=== PATIENT | male | born 1970 | race Caucasian/White ===

== ENCOUNTER 2021-02-08 09:43 | Emergency (ER) | payer BC ==
--- NOTE | 2021-02-08 11:01 | EDM.PDOC ---
ED HPI GENERAL MEDICAL PROBLEM - General Chief Complaint: Chest Pain Stated Complaint: CHEST DISCOMFORT Time Seen by Provider: 02/08/21 09:52 Source of Information: Reports: Patient History Limitations: Reports: No Limitations - History of Present Illness INITIAL COMMENTS - FREE TEXT/NARRATIVE: 50 yo M with hx "ablation" for arrhythmia (pt not certain of exact arrhthmia) around 6 yrs ago (successful) and also GERD presents with episode of chest pain this morning. States he had some chest discomfort during the night that he thought consistent with GERD though unusual for him to have symptoms during the night. Around 5:30 this morning he had a fairly severe episode of epigastric and substernal chest tightness that radiated into his neck. It happened suddenly, lasted around 10 minutes. No associated SOB but he did have some coughing. Much more severe than usual episodes of GERD. No vomiting. He feels normal now. He doesn't get exertional chest pain, is usually very active but has been more sedentary than usual for the past several months. No lower extremity pain/swelling. No fever/recent illness. Had cardiac cath around 4 years ago which was reportedly normal. Is taking omeprazole daily, did take it today and also a tums. Chest Pain Score (Numeric/FACES): 3 - Related Data Allergies Allergy/AdvReac Type Severity Reaction Status Date / Time acetaminophen Allergy Chest Pain Verified 02/08/21 09:52 Penicillins Allergy Itching Verified 02/08/21 09:52 Home Meds: Home Meds Ascorbic Acid [Vitamin C] 1,000 mg PO DAILY 02/08/21 [History] Esomeprazole [NexIUM] 20 mg PO DAILY 02/08/21 [History] Ferrous Sulfate [Iron] 325 mg PO DAILY 02/08/21 [History] Multivitamin [Multi-Vitamin Daily] 1 each PO DAILY 02/08/21 [History] Potassium Gluconate [Potassium] 99 mg PO DAILY 02/08/21 [History] Zinc 1 tab PO DAILY 02/08/21 [History] Past Medical History - Past Health History Medical/Surgical History: Denies Medical/Surgical History HEENT History: Reports: Impaired Vision Cardiovascular History: Reports: Arrhythmia, High Cholesterol Respiratory History: Reports: None Gastrointestinal History: Reports: GERD Genitourinary History: Reports: Renal Calculus Musculoskeletal History: Reports: None Neurological History: Reports: None Psychiatric History: Reports: None Endocrine/Metabolic History: Reports: None Hematologic History: Reports: None Immunologic History: Reports: None Oncologic (Cancer) History: Reports: None Dermatologic History: Reports: None - Infectious Disease History Infectious Disease History: Reports: Chicken Pox - Past Surgical History HEENT Surgical History: Reports: Oral Surgery Cardiovascular Surgical History: Reports: Cardiac Ablation GI Surgical History: Reports: None Social & Family History - Family History Family Medical History: No Pertinent Family History Cardiac: Reports: Heart Murmur - Tobacco Use Tobacco Use Status *Q: Current Every Day Tobacco User Years of Tobacco use: 30 Packs/Tins Daily: 1 - Caffeine Use Caffeine Use: Reports: Coffee - Recreational Drug Use Recreational Drug Use: No ED ROS GENERAL - Review of Systems Review Of Systems: See Below Constitutional: Denies: Fever HEENT: Reports: No Symptoms Respiratory: Denies: Shortness of Breath Cardiovascular: Reports: Chest Pain Endocrine: Reports: Fatigue GI/Abdominal: Denies: Vomiting : Reports: No Symptoms Musculoskeletal: Reports: Neck Pain Skin: Reports: No Symptoms Neurological: Reports: No Symptoms Psychiatric: Reports: No Symptoms Hematologic/Lymphatic: Reports: No Symptoms Immunologic: Reports: No Symptoms ED EXAM, GENERAL - Physical Exam Exam: See Below Exam Limited By: No Limitations General Appearance: Alert, WD/WN, No Apparent Distress Eye Exam: Bilateral Eye: Normal Inspection Ears: Normal External Exam Nose: Normal Inspection Throat/Mouth: Normal Inspection, Normal Voice, No Airway Compromise Head: Atraumatic, Normocephalic Neck: Normal Inspection, Supple, Non-Tender, Full Range of Motion Respiratory/Chest: No Respiratory Distress, Lungs Clear, Normal Breath Sounds, No Accessory Muscle Use Cardiovascular: Normal Peripheral Pulses, Regular Rate, Rhythm, No Edema, No Murmur GI/Abdominal: Soft, Non-Tender, No Distention Back Exam: Normal Inspection Extremities: Normal Inspection, Normal Range of Motion, No Pedal Edema Neurological: Alert, Oriented, Normal Cognition, No Motor/Sensory Deficits Psychiatric: Normal Affect, Normal Mood Skin Exam: Warm, Dry, Intact, Normal Color, No Rash Course - Vital Signs Last Recorded V/S: Last Vital Signs Temp 36.2 C 02/08/21 09:57 Pulse 69 02/08/21 09:57 Resp 14 02/08/21 09:57 BP 127/95 H 02/08/21 09:57 Pulse Ox 100 02/08/21 09:57 - Orders/Labs/Meds Orders: Active Orders 24 hr Category Date Time Status EKG 12 Lead [EKG Documentation Completion] [RC] STAT Care 02/08/21 10:02 Active Labs: Laboratory Tests 02/08/21 02/08/21 Range/Units 09:55 09:55 WBC 5.41 (4.23-9.07) K/mm3 RBC 4.78 (4.63-6.08) M/mm3 Hgb 15.4 (13.7-17.5) gm/dl Hct 44.9 (40.1-51.0) % MCV 93.9 H (79.0-92.2) fl MCH 32.2 (25.7-32.2) pg MCHC 34.3 (32.2-35.5) g/dl RDW Std Deviation 45.3 H (35.1-43.9) fL Plt Count 227 (163-337) K/mm3 MPV 10.0 (9.4-12.3) fl Neut % (Auto) 61.7 (34.0-67.9) % Lymph % (Auto) 27.9 (21.8-53.1) % Nance % (Auto) 7.8 (5.3-12.2) % Eos % (Auto) 2.0 (0.8-7.0) Baso % (Auto) 0.6 (0.1-1.2) % Neut # (Auto) 3.34 (1.78-5.38) K/mm3 Lymph # (Auto) 1.51 (1.32-3.57) K/mm3 Nance # (Auto) 0.42 (0.30-0.82) K/mm3 Eos # (Auto) 0.11 (0.04-0.54) K/mm3 Baso # (Auto) 0.03 (0.01-0.08) K/mm3 Sodium 142 (136-145) mEq/L Potassium 4.5 (3.5-5.1) mEq/L Chloride 106 (98-107) mEq/L Carbon Dioxide 24 (21-32) mEq/L Anion Gap 16.5 H (5-15) BUN 22 H (7-18) mg/dL Creatinine 1.1 (0.7-1.3) mg/dL Est Cr Clr Drug Dosing 82.95 mL/min Estimated GFR (MDRD) > 60 (>60) mL/min BUN/Creatinine Ratio 20.0 H (14-18) Glucose 104 H (70-99) mg/dL Calcium 9.3 (8.5-10.1) mg/dL Total Bilirubin 0.3 (0.2-1.0) mg/dL AST 15 (15-37) U/L ALT 41 (16-63) U/L Alkaline Phosphatase 101 (46-116) U/L Troponin I < 0.017 (0.00-0.056) ng/mL Total Protein 7.6 (6.4-8.2) g/dl Albumin 4.0 (3.4-5.0) g/dl Globulin 3.6 gm/dL Albumin/Globulin Ratio 1.1 (1-2) Lipase 55 L (73-393) U/L - Re-Assessments/Exams Free Text/Narrative Re-Assessment/Exam: 02/08/21 11:25 EKG shows NSR, normal axis/intervals, normal ST/T, no evidence of acute ischemia or arrhythmia. CXR shows no acute abnormality. Labs including troponin are negative. Patient is well-appearing, normal vitals. Discussed with patient that his chest pain is likely not cardiac but he should follow up with PCP to determine whether further testing and/or upper endoscopy is indicated. Discussed ED return precautions. Departure - Departure Time of Disposition: 11:28 Disposition: Home, Self-Care 01 Clinical Impression: Chest pain Qualifiers: Chest pain type: unspecified Qualified Code(s): R07.9 - Chest pain, unspecified GERD (gastroesophageal reflux disease) Qualifiers: Esophagitis presence: esophagitis presence not specified Qualified Code(s): K21.9 - Gastro-esophageal reflux disease without esophagitis - Discharge Information Referrals: PCP,Not In Area [Primary Care Provider] - Forms: ED Department Discharge Additional Instructions: 1. Continue nexium daily 2. Follow up with your regular doctor as soon as possible for further care 3. Return to the ED for recheck if you have further episodes of concerning chest pain, difficulty breathing, or any other concerning symptoms. Sepsis Event Note (ED) - Evaluation Sepsis Screening Result: No Definite Risk - Focused Exam Vital Signs: Vital Signs Temp Pulse Resp BP Pulse Ox 02/08/21 09:57 36.2 C 69 14 127/95 H 100 - My Orders Last 24 Hours: My Active Orders 02/08/21 10:02 EKG 12 Lead [EKG Documentation Completion] [RC] STAT - Assessment/Plan Last 24 Hours: My Active Orders 02/08/21 10:02 EKG 12 Lead [EKG Documentation Completion] [RC] STAT
--- NOTE | 2021-02-08 11:25 | CR ---
Chest: Portable view of the chest was obtained. Comparison: No prior chest imaging is available. Heart size is normal. Slight tortuosity of the thoracic aorta is seen. Lungs are clear with no acute parenchymal change. No acute osseous abnormality is appreciated. Impression: 1. Nothing acute is seen on portable chest x-ray. Diagnostic code #1
== END 2021-02-08 12:03 | disposition home or self-care (01) ==
LOC: JD.ED 09:43
DX: K21.9 Gastro-esophageal reflux disease without esophagitis (principal); Z72.0 Tobacco use; Z79.899 Other long term (current) drug therapy; Z88.0 Allergy status to penicillin; Z88.8 Allergy status to other drugs, medicaments and biological substances
CPT/HCPCS: 36415; 71045; 71045-26; 80053; 83690; 84484; 85025; 93005; 99283; 99285-25

== ENCOUNTER 2022-04-13 17:01 | Emergency (ER) | payer SELFPAY | END 2022-04-13 17:59 | disposition left against medical advice (07) | LOC: JD.ED 17:01 | DX: Z53.21 Procedure and treatment not carried out due to patient leaving prior to being seen by health care provider (principal) ==

== ENCOUNTER 2022-08-14 13:31 | Emergency (ER) | payer SELFPAY ==
[2022-08-14] MEDS ORDERED: Sodium Chloride 0.9% 10 ML Syringe FLUSH PRN ×2 (14:16→16:29)
[2022-08-14] MEDS ORDERED: Iopamidol 755 Mg/ML 100 ML Bottle IVPUSH ONE (16:29)
[2022-08-14] MEDS ORDERED: Sodium Chloride 0.9% 100 ML IV SCH (16:30)
== END 2022-08-14 18:30 | disposition home or self-care (01) ==
LOC: JD.ED 13:31
DX: R07.89 Other chest pain (principal); K21.9 Gastro-esophageal reflux disease without esophagitis; E78.00 Pure hypercholesterolemia, unspecified; Z88.0 Allergy status to penicillin; Z88.8 Allergy status to other drugs, medicaments and biological substances; X50.0XXA Overexertion from strenuous movement or load, initial encounter
CPT/HCPCS: 36415; 71045; 71045-26; 71275; 71275-26; 80053; 83735; 83880; 84484; 85025; 85379; 85610; 85730; 93005; 99285-25; J3490; Q9967

== ENCOUNTER 2022-09-20 09:49 | Day surgery (SDC) | payer SELFPAY ==
[~2022-09-20 09:49] MED LIST: Lactated Ringers 1,000 ML IV SCH; Lidocaine 1%/Sod Bicarbonate in NS 8.4% 1 ML Syringe IDERM PRN; Sodium Chloride 0.9% 10 ML Syringe FLUSH PRN; Sodium Chloride 0.9% 10 ML Syringe FLUSH SCH
[2022-09-20] MEDS ORDERED: Lidocaine 1% 8 ML ONE (13:22)
[2022-09-20] MEDS ORDERED: Succinylcholine 200 MG/10 ML MDV ONE (13:22)
[2022-09-20] MEDS ORDERED: Propofol 200 MG/20 ML SDV ONE (13:22)
[2022-09-20] MEDS ORDERED: fentaNYL 100 MCG/2 ML SDV ONE (13:23)
[2022-09-20] MEDS ORDERED: Rocuronium 50 MG/5 ML Vial ONE (13:23)
[2022-09-20] MEDS ORDERED: Ondansetron 4 MG/2 ML SDV ONE (13:23)
[2022-09-20] MEDS ORDERED: ceFAZolin 2 GM Vial ONE (14:16)
[2022-09-20] MEDS: Bupivacaine 0.5%/EPINEPHrine 1:200,000 50 ML MDV ONE ×2 (14:25→14:39)
[2022-09-20] MEDS: Lidocaine 1% 30 ML SDV ONE ×2 (14:25→14:39)
[2022-09-20] MEDS ORDERED: Ketorolac 30 MG/ML SDV ONE (14:54)
[2022-09-20] MEDS ORDERED: HYDROmorphone 0.5 MG/0.5 ML Syringe ONE (14:57)
[2022-09-20] MEDS ORDERED: fentaNYL 100 MCG/2 ML SDV IVPUSH PRN (15:22)
[2022-09-20] MEDS ORDERED: HYDROmorphone 0.5 MG/0.5 ML Syringe IVPUSH PRN (15:22)
[2022-09-20] MEDS ORDERED: Ondansetron 4 MG/2 ML SDV IVPUSH PRN (15:22)
== END 2022-09-20 17:46 | disposition home or self-care (01) ==
LOC: JD.SDS 09:49
PROVIDERS: ATTEND Surgery
DX: K80.10 Calculus of gallbladder with chronic cholecystitis without obstruction (principal); K82.8 Other specified diseases of gallbladder; F17.210 Nicotine dependence, cigarettes, uncomplicated; I25.10 Atherosclerotic heart disease of native coronary artery without angina pectoris; E78.00 Pure hypercholesterolemia, unspecified; G47.30 Sleep apnea, unspecified; K21.9 Gastro-esophageal reflux disease without esophagitis; E66.9 Obesity, unspecified; Z88.0 Allergy status to penicillin; Z88.6 Allergy status to analgesic agent; Z79.899 Other long term (current) drug therapy; Z98.890 Other specified postprocedural states
CPT/HCPCS: 47562; J0330; J0690; J1170; J1885; J2405; J2704; J3010; J3490; J7120; 00790